=== PATIENT | male | born 1955 | race Caucasian/White ===

== ENCOUNTER → 2018-10-29 | Outpatient (CLI) | payer BC, OTHER ==
[~2018-10-29] MED LIST: ASPIR 8181 MG PO; ATORVASTATIN CA40 MG PO; COREG3.125 MG PO; DIOVAN HCT 1601 EACH PO; DIOVAN320 MG PO; EFFIENT10 MG PO; HYDRALAZINE 2525 MG PO; HYDROCHLOROTH12.5 M2 PO; NITROSTAT0.4 M1 SL; OMEGA 3 FISH O1 EACH PO; PLAVIX 75 MG TA75 M1 PO; TYLENOL325 MG PO
[2018-10-29 10:53] LABS: HEMOGLOBIN 15.4 gm/dL (14.0-18.0); MCH 27.8 pg (26.0-34.0); MCHC 32.8 g/dL (28.0-37.0); MCV 84.6 fL (80.0-100.0); MPV 8.4 fl. (7.2-11.1); RBC 5.55 mil/uL (4.50-6.00); RDW-CV 14.1 % (10.5-14.5); WBC 10.4 thou/uL (4.0-11.0)
[2018-10-29 11:03] LABS: CALCIUM 9.8 mg/dL (8.5-10.1); CREATININE 0.9 mg/dL (0.6-1.3); POTASSIUM 3.8 mmol/L (3.5-5.1)
[2018-10-29 11:07] LABS: ALBUMIN 4.3 g/dL (3.4-5.0); TOTAL BILIRUBIN 0.8 mg/dL (<0.1-1.0); TOTAL PROTEIN 8.6 g/dL (6.4-8.2)
== END ==
LOC: M.LAB 10:35
PROVIDERS: Internal Medicine
DX: R73.9 Hyperglycemia, unspecified (principal)

== ENCOUNTER → 2021-03-15 | Outpatient (CLI) | payer MEDICARE | LOC: M.RAD 09:37 | PROVIDERS: ATTEND Internal Medicine | DX: M25.511 Pain in right shoulder (principal) ==